=== PATIENT | male | born 1990 | race Two or more races ===

== ENCOUNTER 2025-04-26 16:21 | Emergency (ER) | payer SELFPAY ==
[2025-04-26 18:18] VITALS: BP 137/81; PULSE 99; RESP 18; TEMP 37.1; O2SAT 98
--- NOTE | 2025-04-26 18:25 | EDNOTE_ITS ---
<Statement entered by Jaz Storm MD - 04/27/25 23:26> As co-signing physician, I was present and available for consult prn. I concur with the plan and care as documented by the midlevel provider. ED Recheck Abnl Lab Rx-RME/HPI General Chief Complaint: Recheck/Abnormal Lab/Rx Stated Complaint: Pt. states he's here for Librium Time Seen by Provider: 04/26/25 18:11 Arrival date/time: 04/26/25 16:21 RME / HPI RME / HPI narrative: 34-year-old male patient was brought in by family for evaluation regarding request for Librium. Patient was diagnosed with alcohol withdrawal symptoms in [place] 2 days ago, was admitted in the hospital however patient was sent home with no prescription of Librium because did not want to prescribe following to [place]. Patient arrived today. Patient is complaining of feeling anxious and shaky. Denies any other complaints told me that the last time he drink alcohol was 9 days ago. Related Data Previous Rx's ?Medication ?Instructions ?Recorded chlordiazepoxide HCl 25 mg capsule 25 mg PO Q6H PRN al cohol 04/26/25 withdrawal #20 caps chlordiazepoxide HCl 25 mg capsule 25 mg PO TID PRN al cohol 04/26/25 withdrawal #20 caps chlordiazepoxide HCl 25 mg capsule 25 mg PO QID PRN al cohol 04/27/25 withdrawal #20 caps Allergies Allergy/AdvReac Type Severity Reaction Status Date / Time No Known Drug Allergies Allergy Verified 04/26/25 16:28 Review of Systems Review of Systems Narrative Review of Systems: Review of system reviewed and within normal limits except mentioned in HPI ED Exam Narrative Physical exam: VITAL SIGNS: Reviewed. GENERAL APPEARANCE: Alert and interactive, follows commands, no acute distress, anxious HEAD AND FACE: Non-traumatic. ENT: PERRL, pink conjunctivitis, eyelid no trauma, Mucous membrane moist. NECK: Supple, nontender, no nuchal rigidity. CHEST: No tenderness, no crepitus, no paradoxical movement, no retractions. LUNGS: Clear, well ventilated, symmetric, no rales, no wheezing, no ronchi, no stridor, good breath sounds bilaterally. HEART: Regular rate, regular rhythm, no murmur, no gallops. ABDOMEN: Soft, positive bowel sounds, nondistended, no guarding, nontender, no rebound, no masses, RECTAL: Deferred. GENITAL: Deferred. NEUROLOGICAL: Gross motor function intact sensory function intact, Appropriate for age. MUSCULOSKELETAL: low back nontender, full range of motion. EXTREMITIES: Nontender, full range of motion. SKIN: Color pink, dry, no rash, no lacerations, no abrasions, no contusions. LYMPHATICS: Deferred. Course Quality Measures none Orders Category Date Time Status chlordiazePOXIDE HCl [Librium] Med 04/26/25 18:24 Discontinued 25 mg PO X1 ONE Vital Signs Vital signs: Vital Signs Temperature 98.7 F 04/26/25 18:18 Pulse Rate 99 04/26/25 18:18 Respiratory Rate 18 04/26/25 18:18 Blood Pressure 137/81 H 04/26/25 18:18 Pulse Oximetry (%) 98 04/26/25 18:18 Oxygen Delivery Method Room Air 04/26/25 18:18 Recheck / Abnormal Lab / Rx MDM Narrative MDM Narrative:: 34-year-old male patient was brought in by family for evaluation regarding request for Librium. Patient was diagnosed with alcohol withdrawal symptoms in [place] 2 days ago, was admitted in the hospital however patient was sent home with no prescription of Librium because did not want to prescribe following to [place]. Patient arrived today. Patient is complaining of feeling anxious and shaky. Denies any other complaints told me that the last time he drink alcohol was 9 days ago. Patient stable Librium with significant problems symptoms. Workup presented at this time. Patient is not showing alcohol withdrawal symptoms. Patient data External records reviewed:: None Clinical information provided by:: patient Social determinants that could affect healthcare access:: alcohol use Patient has the following chronic illnesses:: Chronic alcoholism How is presenting disease/condition affected by chronic disease/condition?: exacerbated by Evaluation data The following diagnostics were reviewed and interpreted by me:: other (specify) Lab and/or radiology exams considered but not ordered:: None Interpretation Summary: None Medications / Prescriptions Medications or Prescriptions considered but not ordered:: None Medication administrations:: Medication Administration History Discontinued Medications Chlordiazepoxide HCl (Chlordiazepoxide Hcl 25 Mg Capsule) 25 mg PO X1 ONE Stop: 04/26/25 18:25 Last Admin: 04/26/25 18:30 Dose: 25 mg Documented By: NIKKO Librium Consultations Consultation(s) initiated? (list below): No Diagnosis Recheck Differential Diagnosis: other (Alcohol withdrawal, anxiety, chronic alcoholism) Most likely diagnosis given after review of the tests above:: Anxiety, chronic. Admission Indicated Admission indicated?: not indicated Admission Request Was there a request for admission?: No Disposition Plan Disposition Plan: Discharge Discharge Attestation Discharge Attestation: The patient and all family members were given an opportunity to ask questions and understood the discharge instructions. Discharge instructions specifically effects, indications for sooner follow up or return to the emergency department, and the expected course of current diagnosis. Patient condition: Stable Discharge Plan Plan Patient Disposition: HOME (Self Care) Discharge Disposition comment: Stable Prescriptions/Referrals Prescriptions/Med Rec: New chlordiazepoxide HCl 25 mg capsule 25 mg PO TID PRN (Reason: alcohol withdrawal) Qty: 20 0RF chlordiazepoxide HCl 25 mg capsule 25 mg PO Q6H PRN (Reason: alcohol withdrawal) Qty: 20 0RF chlordiazepoxide HCl 25 mg capsule 25 mg PO QID PRN (Reason: alcohol withdrawal) Qty: 20 0RF Problem List Clinical Impression: Anxiety, Alcoholism, chronic Patient/Caregiver Discharge Instructions Discharge Activity: activity as tolerated Education Materials: Alcohol Addiction Additional Instructions: Thank you for the opportunity for serving you today. You are stable for discharged . You are advised to: Follow-up with your PCP in 1 to 2 days Return to ED for worsening of symptoms Increase oral fluids Take medication as prescribed Print Language: Bengali Stand Alone Forms: Shelby Award Info., Patient Portal Info Letter
[2025-04-26] MEDS: chlordiazePOXIDE HCl 25 MG CAPSULE PO (18:30)
== END 2025-04-26 19:36 | disposition home or self-care (01) ==
PROVIDERS: Emergency Provider Emergency Medicine
DX: F10.20 Alcohol dependence, uncomplicated (principal); F41.9 Anxiety disorder, unspecified
CPT/HCPCS: 99282; A9270

== ENCOUNTER 2025-06-18 07:14 | Inpatient (IN) | payer MEDICAID, SELFPAY ==
[2025-06-18 07:27] VITALS: BP 150/102; PULSE 100; RESP 18; TEMP 36.9; O2SAT 97; BMI 24.2
--- NOTE | 2025-06-18 07:42 | EKG_ITS ---
[facility] Test Date: 2025-06-18 Pat Name: Brian Camargo Department: Room: - Gender: Male Lab Engineer: : 1990 Requested By: Enmanuel Barrera Order Number: [id number] Reading MD: Enmanuel Barrera Measurements Intervals [place] Rate: 94 P: 58 DC: 151 QRS: 15 QRSD: 97 T: 70 QT: 334 QTc: 419 Interpretive Statements SINUS RHYTHM NONSPECIFIC T-WAVE ABNORMALITY No previous ECG available for comparison /store/S0/[id number]
--- NOTE | 2025-06-18 07:43 | PD.EDRME ---
Rapid Medical Screening Exam RME Arrival date/time: 06/18/25 07:14 35-year-old male with no known medical history presents to the emergency room with a chief complaint of shakiness numbness weakness anxiety x 2 days. Patient states he is withdrawing from alcohol and was sober for 2 months before having his last drink 2 days ago. Patient states during his withdrawals he has a history of having seizures. I have greeted and performed a focused initial assessment of this patient. A comprehensive ED assessment and evaluation of the patient, analysis of all test results, and completion of the medical decision making process will be conducted by additional ED providers. Chief Complaint: Alcohol Time Seen by Provider: 06/18/25 07:29 Vital signs: Vital Signs Temperature 98.4 F 06/18/25 07:27 Pulse Rate 100 06/18/25 07:27 Respiratory Rate 18 06/18/25 07:27 Blood Pressure 150/102 H 06/18/25 07:27 Pulse Oximetry (%) 97 06/18/25 07:27 Oxygen Delivery Method Room Air 06/18/25 07:27 Vital signs reviewed by provider: Yes
--- NOTE | 2025-06-18 08:14 | EDNOTE_ITS ---
<Statement entered by Jaz Storm MD - 07/02/25 06:28> I, Jaz Storm MD, have reviewed the history, exam, and assessment of the patient. I have evaluated the patient independently and agree with the plan of care documented by [ ]. All diagnostic studies were reviewed and discussed. I confirm the diagnosis as documented by the Resident. I was present during the Medical Decision Making for this patient. The patient's plan of care was created between myself and the Resident and consistent with our discussion of the patient's case. ED General RME/HPI General Chief complaint: Alcohol Stated complaint: ETOH WITHDRAWL, ANXIETY, WEAKNESS Time Seen by Provider: 06/18/25 07:29 Arrival date/time: 06/18/25 07:14 RME / HPI RME / HPI narrative: 06/18/25 07:14 35-year-old male with no known medical history presents to the emergency room with a chief complaint of shakiness numbness weakness anxiety x 2 days. Patient states he is withdrawing from alcohol and was sober for 2 months before having his last drink 2 days ago. Patient states during his withdrawals he has a history of having seizures. I have greeted and performed a focused initial assessment of this patient. A comprehensive ED assessment and evaluation of the patient, analysis of all test results, and completion of the medical decision making process will be conducted by additional ED providers. 35-year-old male with past medical history of alcohol use disorder and alcohol withdrawal seizures comes into the ED today due to alcohol withdrawal symptoms. Patient states that 2 months ago he stopped drinking, but that last week he relapsed again and was drinking around 12-13 beers per day. States that his last drink was 2 days ago and that he started having tremors and feeling very anxious today. He stated that he felt the symptoms when he had the seizure therefore he came to the ED. He was prescribed Librium as outpatient and was requesting this, but it was explained to him that at this time he is [place] with the benefits of prescribing outpatient benzodiazepines as they can decrease the respiratory drive mix with alcohol. Otherwise patient has no other complaints at this time denies any nausea, vomiting, headaches, visual disturbances, tactile disturbances, chest pain, shortness of breath, or anything else. Denies any smoking, drugs, admits alcohol Related Data Previous Rx's ?Medication ?Instructions ?Recorded chlordiazepoxide HCl 25 mg capsule 25 mg PO Q6H PRN al cohol 04/26/25 withdrawal #20 caps chlordiazepoxide HCl 25 mg capsule 25 mg PO TID PRN al cohol 04/26/25 withdrawal #20 caps chlordiazepoxide HCl 25 mg capsule 25 mg PO QID PRN al cohol 04/27/25 withdrawal #20 caps Allergies Allergy/AdvReac Type Severity Reaction Status Date / Time No Known Drug Allergies Allergy Verified 06/18/25 07:24 Review of Systems Review of Systems Systems Reviewed: All systems reviewed, normal except as documented Past Medical History Past Medical History Comments PMH COMMENT: PMH: Alcohol use disorder and alcohol withdrawal seizures Social Hx: Denies any smoking, drugs, admits alcohol use Allergies: NKDA ED Exam Narrative Physical exam: Gen: A&O X 3, NAD HEENT: NCAT, EOMI, Pupils reactive MICHAEL, not icteric. External ears normal. No rhinorrhea. Moist mucous membranes. Neck: Supple, full range of motion, no observable masses, No meningeal sign. Lungs: No Respiratory distress, clear bilateral. CV: RRR, no murmurs. Abdomen: Soft, nondistended, No rebound tenderness. MSK: No joint swelling, no redness, peripheral pulses presents, lumbar with no edema. Asterixis present bilaterally. Skin: No rashes, petechiae, lesions. Neuro: No focal neurological deficits appreciated, sensory and motor intact. Psych: Anxious appearing, appropriate mood and affect Course Quality Measures none Orders Category Date Time Status COVID-19 Screening Questionnaire NOW Care 06/18/25 09:29 Active Decision to Admit X1 Care 06/18/25 09:29 Active EKG (ED ONLY) *Do not use* NOW Care 06/18/25 07:42 Completed Insert IV NOW Care 06/18/25 08:22 Completed EKG (ED Only) Stat Exams 06/18/25 07:42 Draft Alcohol, Blood Medical Stat Lab 06/18/25 08:20 Completed B-Type Natriuretic Peptide Stat Lab 06/18/25 08:20 Received CBC Stat Lab 06/18/25 08:20 Completed Comprehensive Metabolic Panel Stat Lab 06/18/25 08:20 Completed Drug Screen,Urine Stat Lab 06/18/25 08:32 Received Magnesium Stat Lab 06/18/25 08:20 Completed Troponin I Stat Lab 06/18/25 08:20 Completed Urinalysis Stat Lab 06/18/25 08:32 Received Folic Acid Inj Med 06/18/25 08:21 Discontinued 1 mg IVP X1 ONE Midazolam Inj [Versed Inj] Med 06/18/25 08:14 Discontinued 1 mg IVP X1 ONE Potassium Chloride [K-Dur] Med 06/18/25 09:27 Discontinued 40 meq PO X1 ONE Sodium Chloride 0.9% 1000 ml [Ns] 1,000 ml Med 06/18/25 08:21 Discontinued IV 999 mls/hr Thiamine Inj [Vitamin B-1 Inj] Med 06/18/25 08:21 Discontinued 100 mg IVP X1 ONE Vital Signs Vital signs: Vital Signs Temperature 98.4 F 06/18/25 07:27 Pulse Rate 100 06/18/25 07:27 Respiratory Rate 18 06/18/25 07:27 Blood Pressure 150/102 H 06/18/25 07:27 Pulse Oximetry (%) 97 06/18/25 07:27 Oxygen Delivery Method Room Air 06/18/25 07:27 Discharge Plan Plan Patient Disposition: Admit Acute Care w/in Hospital Prescriptions/Referrals Prescriptions/Med Rec: No Action chlordiazepoxide HCl 25 mg capsule 25 mg PO TID PRN (Reason: alcohol withdrawal) Qty: 20 0RF chlordiazepoxide HCl 25 mg capsule 25 mg PO Q6H PRN (Reason: alcohol withdrawal) Qty: 20 0RF chlordiazepoxide HCl 25 mg capsule 25 mg PO QID PRN (Reason: alcohol withdrawal) Qty: 20 0RF Referrals: Js Chery MD [Primary Care Provider] - In 1 week Problem List Clinical Impression: Alcohol withdrawal Patient/Caregiver Discharge Instructions Print Language: Djiboutian Stand Alone Forms: Shelby Award Info., Patient Portal Info Letter MDM Narrative MDM hospital course: Patient was seen and evaluated upon arrival by myself. Diagnostic labs were ordered. CIWA score was 7 therefore Versed 1 mg IV was given along with IV fluids, thiamine, and folic acid Patient's potassium came back low therefore ordered 40 mEq of potassium. 9: 28: Spoke with IM team for hospital admission due to alcohol withdrawal. IM team will assess the patient for admission. Case disclosed with Attending Dr. Dotty Lakhani PGY2 Disclaimer: Even though this this note was dictated by speech recognition and even though it was carefully revised there may still be minor errors in agricultural produce commission agent due to voice recognition software. Medication Administration(s) Medication Administration History Discontinued Medications Folic Acid (Folic Acid Inj 1 Mg/0.2 Ml) 1 mg IVP X1 ONE Stop: 06/18/25 08:22 Last Admin: 06/18/25 09:06 Dose: 1 mg Documented By: ARF Sodium Chloride (Ns) 1,000 mls @ 999 mls/hr IV .Q1H1M ONE Stop: 06/18/25 09:21 Last Admin: 06/18/25 09:05 Dose: 999 mls/hr Documented By: ARF Midazolam HCl (Midazolam Inj 1 Mg/Ml Vial 2 Ml) 1 mg IVP X1 ONE Stop: 06/18/25 08:15 Last Admin: 06/18/25 09:05 Dose: 1 mg Documented By: ARF Potassium Chloride (Potassium Chloride 20 Meq Tabcr) 40 meq PO X1 ONE Stop: 06/18/25 09:28 Thiamine HCl (Thiamine Inj 100 Mg/Ml Vial 2 Ml) 100 mg IVP X1 ONE Stop: 06/18/25 08:22 Last Admin: 06/18/25 09:05 Dose: 100 mg Documented By: ARF
[2025-06-18 08:41] LABS: Collection Type, Urine Clean Catch; Squamous Epithelial Cell,Urine 0 /hpf (0-5)
[2025-06-18 08:46] LABS: Basophils # (Auto) 0.1 Thou/mm3 (0.0-0.2); Basophils % (Auto) 1 % (0-2.5); Eosinophils # (Auto) 0.1 Thou/mm3 (0.0-0.5); Eosinophils % (Auto) 2 % (0-10); Hematocrit 47.3 % (41.0-53.0); Hemoglobin 17.1 g/dL (13.5-16.0); Immature Granulocytes Auto 0.02 Thou/mm3 (0.00-0.00); Lymphocytes # (Auto) 3.2 Thou/mm3 (1.0-4.8); Lymphocytes % (Auto) 49 % (10-50); Mean Corpuscular HGB Conc 36.2 g/dl (31.0-37.0); Mean Corpuscular Hemoglobin 33.7 pg (25.0-35.0); Mean Corpuscular Volume 93 fL (80-100); Monocytes # (Auto) 0.6 Thou/mm3 (0.0-0.8); Monocytes % (Auto) 9 % (0-12); Neutrophils # (Auto) 2.5 Thou/mm3 (1.8-7.7); Neutrophils % (Auto) 39 % (37-80); Nucleated Red Blood Cell # 0.00 Thou/mm3 (0.00-0.00); Nucleated Red Blood Cell % 0 /100 WBC (0); Platelet Count 143 Thou/mm3 (140-440); RDW Standard Deviation 41.8 fL (35.1-43.9); Red Blood Count 5.07 Miln/mm3 (4.50-5.90); White Blood Count 6.5 Thou/mm3 (3.8-10.6)
[2025-06-18] MEDS: SODIUM CHLORIDE 0.9% 1000 ML 1,000 ML 999 ML IV (09:05)
[2025-06-18] MEDS: THIAMINE INJ 100 MG/ML VIAL 2 ML IVP (09:05)
[2025-06-18] MEDS: MIDAZOLAM INJ 1 MG/ML VIAL 2 ML IVP (09:05)
[2025-06-18] MEDS: FOLIC ACID INJ 1 MG/0.2 ML IVP (09:06)
[2025-06-18 09:22] LABS: Alanine Aminotransferase 102 U/L (10-49); Albumin, Serum 5.3 gm/dL (3.5-5.0); Albumin/Globulin Ratio 1.9 (1.2-2.2); Alcohol, Blood Medical 301.3 mg/dL (0-10.0); Alkaline Phosphatase 125 U/L (46-116); Anion Gap 18 (7-16); Aspartate Amino Transferase 150 U/L (0-34); BUN/Creatinine Ratio 9 Ratio (12-20); Bilirubin,Total 0.9 mg/dL (0.3-1.2); Blood Urea Nitrogen 6 mg/dL (9-23); Calcium 10.1 mg/dL (8.3-10.6); Calcium (Corrected) 10.1 mg/dL (8.5-10.1); Carbon Dioxide 23.9 mMol/L (20.0-31.0); Chloride 99 mMol/L (98-107); Creatinine (Component) 0.7 mg/dL (0.6-1.3); Estimated Creatinine Clearance 132.9 mL/min (>60); Globulin 2.8 gm/dL (2.3-3.5); Glucose 99 mg/dL (74-106); Magnesium 1.8 mg/dL (1.6-2.6); Osmolality,Calculated 278 (275-295); Potassium 3.0 mMol/L (3.4-5.1); Sodium 141 mMol/L (136-145); Total Protein 8.1 gm/dL (5.7-8.2); Troponin I < 0.002 ng/mL (0.0-0.045); eGFR > 60 See Note
[2025-06-18 09:35] LABS: Bilirubin,Urine Negative (Negative); Blood,Urine Negative (Negative); Clarity,Urine Clear (Clear/Hazy); Color,Urine Colorless (Lt Yel-Yel); Glucose, Urine Negative (Negative); Ketones,Urine Negative (Negative); Leukocyte Esterase,Urine Negative (Negative); Nitrite,Urine Negative (Negative); PH,Urine 6.5 (5.0-7.0); Protein,Urine Negative (Neg - Trace); RBC,Urine 1 /hpf (0-3); Specific Gravity,Urine 1.004 (1.001-1.035); Urobilinogen,Urine Negative mg/dL (0.0-1.0); WBC,Urine < 1 /hpf (0-5)
[2025-06-18 09:48] LABS: Amphetamine/Methamp Scrn,U Negative (Negative); Barbiturate Screen,Urine Negative (Negative); Benzodiazepines Screen,Urine Negative (Negative); Benzoylecgonine Screen, Ur Negative (Negative); Fentanyl Screen,Urine Negative (Negative); Opiate Screen,Urine Negative (Negative); THC Screen,Urine Negative (Negative)
[2025-06-18 10:15] VITALS: BP 145/91; PULSE 114; RESP 18; TEMP 36.9; O2SAT 97
[2025-06-18 10:52] LABS: B-Type Natriuretic Peptide < 20 pg/mL (0-100)
--- NOTE | 2025-06-18 13:26 | ESHP_ITS ---
<Statement entered by Taryn Santana MD - 06/18/25 21:18> Patient was seen and examined at bedside. Agree with assessment and plan on this note. - Patient's plan and care discussed with my attending, Dr. Kemi Santana MD Internal Medicine PGY-3 Documentation for date of: 06/18/25 HPI History of Present Illness Chief complaint: Alcohol withdrawal History of present illness: Mr. Mccormick is a 35 year old male with a past medical history of alcohol use presents to the ED because he was having anxiety and feeling weak, with last alcoholic drink about 2 days. Patient states that he had been sober on and off from alcohol for around the last year for months at a time. He most recently started drinking around 2 weeks ago and stopped for the last week with the exception of 2 days ago. Patient states that he drinks 12 beers per day. Patient endorses hx of multiple episodes of withdrawal and endorses history of withdrawal seizures, most recently a few weeks ago in [place]. Patient states he was taking librium outpatient and no longer has any. Patient currently denies having fever, chills, chest pain, shortness of breath, abdominal pain, nausea, vomiting, hallucinations. Past Medical History: above Surgical History: None Social History: Endorses drinking alcohol since around 20 years old (has sober time periods; when drinking, endorses ~12 beers/day amount dai). 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 Current Medications: None Allergies: No known drug allergies ED Course: -Initial vitals were temperature 98.4, heart rate 100 bpm, RR 18, BP 150/102, 97% O2 on RA. -Labs significant for WBC 6.5, Hgb 17.1, Plt 143, K 3.0, AGAP 18, glucose 99, AST 150, ALT 102, Alk Phos 125, Ethyl Alcohol 301.3, Utox negative. -Imaging included EKG that showed sinus rhythm -In the ED, patient was given Midazolam 1 mg IV, Thiamine 100 mg, Folic Acid 1 mg, 1 L NS IV bolus, KCl 40 meq x1. -Patient was admitted for alcohol withdrawal. Review of Systems Review of systems otherwise negative except what is mentioned above. Exam Vital Signs Temp Pulse Resp BP Pulse Ox O2 Del Method 98.5 F 114 H 18 145/91 H 97 Room Air 06/18/25 10:15 06/18/25 10:15 06/18/25 10:15 06/18/25 10:15 06/18/25 10:15 06/18/25 10:15 Narrative Exam General: Anxious appearing, A&Ox3 Skin: Warm, dry, intact, no obvious rash. HENT: NCAT, EOMI, not icteric. External ears normal. No rhinorrhea. Dry mucous membranes Cardiovascular: Tachycardic, regular rhythm, no murmur, +S1/S2. Respiratory: Lungs CTAB GI: Soft, nontender, non-distended. No guarding or rebound tenderness. Extremities: no edema, no cyanosis, no clubbing. Extremity pulses present Neuro: No focal deficits observed. Conversant, moving all extremities. No overt cerebellar signs/incoordination. Results: Labs 06/19/25 05:22 06/19/25 05:22 Labs: Short CBC 06/18/25 Range/Units 08:20 WBC 6.5 (3.8-10.6) Thou/mm3 Hgb 17.1 H (13.5-16.0) g/dL Hct 47.3 (41.0-53.0) % Plt Count 143 (140-440) Thou/mm3 BMP 06/18/25 08:20 Sodium 141 Potassium 3.0 L Chloride 99 Carbon Dioxide 23.9 BUN 6 L Creatinine 0.7 Glucose 99 Calcium 10.1 Cardiac Enzymes 06/18/25 Range/Units 08:20 Troponin I < 0.002 (0.0-0.045) ng/mL Liver Function 06/18/25 Range/Units 08:20 Total Bilirubin 0.9 (0.3-1.2) mg/dL AST 150 H (0-34) U/L ALT 102 H (10-49) U/L Alkaline Phosphatase 125 H (46-116) U/L Albumin 5.3 H (3.5-5.0) gm/dL Urine 06/18/25 Range/Units 08:32 Urine Color Colorless A (Lt Yel-Yel) Urine Clarity Clear (Clear/Hazy) Urine pH 6.5 (5.0-7.0) Ur Specific [place] 1.004 (1.001-1.035) Urine Protein Negative (Neg - Trace) Urine Glucose (UA) Negative (Negative) Quality Measures Quality Measures VTE prophylaxis Medications Home Medications and Allergies Home Medications ?Medication ?Instructions ?Recorded ?Confirmed ?Type No Known Home Medications 06/19/2506/01 History Allergies Allergy/AdvReac Type Severity Reaction Status Date / Time No Known Drug Allergies Allergy Verified 06/18/25 07:24 Visit Medications Potassium Chloride (Kcl Ivpb) 10 meq in 100 mls @ 100 mls/hr IV Q1H DEBORAH Stop: 06/18/25 16:59 Discontinued Medications Folic Acid (Folic Acid Inj 1 Mg/0.2 Ml) 1 mg IVP X1 ONE Stop: 06/18/25 08:22 Last Admin: 06/18/25 09:06 Dose: 1 mg Sodium Chloride (Ns) 1,000 mls @ 999 mls/hr IV .Q1H1M ONE Stop: 06/18/25 09:21 Last Infusion: 06/18/25 10:53 Dose: Infused Midazolam HCl (Midazolam Inj 1 Mg/Ml Vial 2 Ml) 1 mg IVP X1 ONE Stop: 06/18/25 08:15 Last Admin: 06/18/25 09:05 Dose: 1 mg Potassium Chloride (Potassium Chloride 20 Meq Tabcr) 40 meq PO X1 ONE Stop: 06/18/25 09:28 Last Admin: 06/18/25 10:15 Dose: 40 meq Thiamine HCl (Thiamine Inj 100 Mg/Ml Vial 2 Ml) 100 mg IVP X1 ONE Stop: 06/18/25 08:22 Last Admin: 06/18/25 09:05 Dose: 100 mg Assessment & Plan Plan Mr. Mccormick is a 35 year old male with a past medical history of alcohol use presents to the ED because he was having anxiety and feeling weak, admitted for alcohol withdrawal. #Acute Alcohol Withdrawal #high anion gap metabolic acidosis #lactic acidosis Patient comes in with anxiety and weakness for the last 2 days. Reports hx of withdrawals with seizures (patient stated most recent a few weeks ago). Ethyl Alcohol 301.3. In ED, given Midazolam 1 mg IV, Thiamine 100 mg, Folic Acid 1 mg, 1 L NS IV bolus Patient fount to have HAGMA due to lactic acidosis (3.6), likely due to combination of poor nutrition, dehyrdation, alcohol use. -CIWA protocol deployed -Folic Acid 1 mg IV qd -Thiamine 100 mg IV qd -Librium 25 mg po q8hr; tapering so that following days are BID, x1. -Maintenance NS IV fluids -Ordered repeat lactic acid -neuro checks q4h -seizure precautions. #Hypokalemia K on admission was 3.0 Patient denies muscle cramps, chest pain, palpitations. EKG sinus rhythm -repleted with KCl 40 PO meq x1 & KCl 10 meq IV x4 #LFT elevation On admission, AST 150, ALT 102, Alk Phos 125 Suspecting alcohol use vs possible viral, autoimmune, hereditary/genetic If it does not improve, then will consider workup for other etiology. -Will continue to monitor LFT's #Polycythemia Hgb on admission 17.1 Likely due to hemoconcentration given patients poor PO intake. Patient received Bolus liter; on maintenance fluids -will continue to monitor hgb Hospital Management: Disposition: Tele Diet: Regular GI Prophylaxis: Protonix 40 mg qd DVT Prophylaxis: Heparin CODE STATUS: FULL CODE Patient plan of care was discussed with the attending physician, Dr. Mcmullen & senior resident Dr. Max Frye MD PGY-1 Attending Provider Attestation/Addendum I have examined the patient, reviewed labs and imaging findings, discussed the case with the resident(s), and reviewed entered orders. I agree with the plan of care as outlined in this note, with these additional summaries/recommendations: After examination of the patient and review of the clinical data, I feel that this patient needs admission to the hospital for further treatment and evaluation. Patient will be admitted for acute encephalopathy in the setting of alc withdrawal versus intoxication. Patient is not reliable historian at this time. Start CIKY protocol. Monitor transaminitis. creative services director referral for resources one mentation more improved. Dr. Kemi MD
[2025-06-18 13:43] LABS: Lactate (Lactic Acid) 3.6 mMol/L (0.4-2.0)
[2025-06-18] MEDS: POTASSIUM CHL 10 mEq IVPB 10 MEQ/100 ML BAG 100 MEQ IV ×4 (13:59→18:25)
[2025-06-18] MEDS: SODIUM CHLORIDE 0.9% 1000 ML 1,000 ML 110 ML IV ×2 (14:00→18:35)
--- NOTE | 2025-06-18 14:07 | PC.NURSE ---
FOOD AND FLUIDS PROVIDED.
[2025-06-18 14:22] LABS: Thyroid Stimulating Hormone 0.79 uIU/mL (0.55-4.78)
[2025-06-18 14:27] LABS: Glucose Estimated Average 114 mg/dL (80-131); Hemoglobin A1C 5.6 % Hgb (4.8-6.0)
[2025-06-18 16:02] VITALS: BP 139/84; PULSE 102; RESP 18; TEMP 36.9; O2SAT 96
[2025-06-18 16:37] LABS: Reflex Lactate? Y
[2025-06-18 18:13] VITALS: BP 137/89; PULSE 89; RESP 17; TEMP 36.7; O2SAT 97; BMI 24.2
[2025-06-18] MEDS: SODIUM CHLORIDE 0.9% 500 ML 500 ML 999 ML IV (18:34)
[2025-06-18 20:00] VITALS: PULSE 102
[2025-06-18 20:40] LABS: Lactate (Lactic Acid) 2.7 mMol/L (0.4-2.0)
[2025-06-18] MEDS: HEPARIN SOD INJ 5000 UNIT/ML VIAL SC (21:06)
[2025-06-18] MEDS: ACETAMINOPHEN 325 MG TABLET 650 MG PO (22:17)
[2025-06-18 23:30] VITALS: PULSE 98
[2025-06-18 23:34] LABS: Reflex Lactate? Y
[2025-06-18 23:54] LABS: Lactic Acid, 3 HR 0.8 mMol/L (0.4-2.0)
[2025-06-19] VITALS (7 sets, daily range): BP systolic 131–151; BP diastolic 81–92; PULSE 70–125; RESP 12–21; TEMP 35.9–36.8; O2SAT 97–99; BMI 24.8
[2025-06-19 05:44] LABS: Basophils # (Auto) 0.1 Thou/mm3 (0.0-0.2); Basophils % (Auto) 1 % (0-2.5); Eosinophils # (Auto) 0.0 Thou/mm3 (0.0-0.5); Eosinophils % (Auto) 0 % (0-10); Hematocrit 42.3 % (41.0-53.0); Hemoglobin 15.0 g/dL (13.5-16.0); Immature Granulocytes Auto 0.03 Thou/mm3 (0.00-0.00); Lymphocytes # (Auto) 1.1 Thou/mm3 (1.0-4.8); Lymphocytes % (Auto) 21 % (10-50); Mean Corpuscular HGB Conc 35.5 g/dl (31.0-37.0); Mean Corpuscular Hemoglobin 33.7 pg (25.0-35.0); Mean Corpuscular Volume 95 fL (80-100); Monocytes # (Auto) 0.5 Thou/mm3 (0.0-0.8); Monocytes % (Auto) 10 % (0-12); Neutrophils # (Auto) 3.5 Thou/mm3 (1.8-7.7); Neutrophils % (Auto) 67 % (37-80); Nucleated Red Blood Cell # 0.00 Thou/mm3 (0.00-0.00); Nucleated Red Blood Cell % 0 /100 WBC (0); Platelet Count 132 Thou/mm3 (140-440); RDW Standard Deviation 42.1 fL (35.1-43.9); Red Blood Count 4.45 Miln/mm3 (4.50-5.90); White Blood Count 5.2 Thou/mm3 (3.8-10.6)
[2025-06-19 06:06] LABS: INR 1.1 (0.9-1.3); Partial Thromboplastin Time 27.9 Seconds (22.0-36.0); Prothrombin Time 11.9 Seconds (9.0-12.2)
[2025-06-19 06:24] LABS: Alanine Aminotransferase 81 U/L (10-49); Albumin, Serum 4.8 gm/dL (3.5-5.0); Albumin/Globulin Ratio 1.9 (1.2-2.2); Alkaline Phosphatase 101 U/L (46-116); Anion Gap 16 (7-16); Aspartate Amino Transferase 102 U/L (0-34); BUN/Creatinine Ratio 8 Ratio (12-20); Bilirubin,Total 1.8 mg/dL (0.3-1.2); Blood Urea Nitrogen < 5 mg/dL (9-23); Calcium 10.1 mg/dL (8.3-10.6); Calcium (Corrected) 10.1 mg/dL (8.5-10.1); Carbon Dioxide 23.9 mMol/L (20.0-31.0); Chloride 99 mMol/L (98-107); Creatinine (Component) 0.6 mg/dL (0.6-1.3); Estimated Creatinine Clearance 155.1 mL/min (>60); Globulin 2.5 gm/dL (2.3-3.5); Glucose 85 mg/dL (74-106); Magnesium 1.5 mg/dL (1.6-2.6); Osmolality,Calculated 273 (275-295); Phosphorous 2.8 mg/dL (2.4-5.1); Potassium 3.8 mMol/L (3.4-5.1); Sodium 139 mMol/L (136-145); Total Protein 7.3 gm/dL (5.7-8.2); eGFR > 60 See Note
[2025-06-19] MEDS: PANTOPRAZOLE 40 MG TABLET PO (08:50)
[2025-06-19] MEDS: HEPARIN SOD INJ 5000 UNIT/ML VIAL SC ×2 (08:50→20:07)
[2025-06-19] MEDS: THIAMINE INJ 100 MG/ML VIAL 2 ML IV (08:51)
[2025-06-19] MEDS: FOLIC ACID INJ 1 MG/0.2 ML IVP (09:08)
--- NOTE | 2025-06-19 11:34 | PC.SS ---
Brian Mccormick is a 35 year-old male admitted to [facility] for ETOH Withdrawl. SS conducted bedside contact with the patient to complete initial assessment and to discuss discharge planning. Role and reason explained. Patient confirmed demographic information. Patient identifies his Adrianna Cortés [phone] as his surrogate decision maker. Pt states he is able to complete all ADL?s independent. Pt does not possesses any DME. Pts PCP is Vik MERCADO. Discharge options discussed and the pt wishes to return home.? Pt will provide transport. No further intervention required at this time, geriatric social worker would be available to address any further concerns. DC Plan: Home Contact: Adrianna Address: Confirmed on face sheet PCP: Vik
--- NOTE | 2025-06-19 13:04 | PC.SS ---
Rounding: One more day of monitoring w/d, DC plan home tomorrow
--- NOTE | 2025-06-19 13:26 | ESPR_ITS ---
<Statement entered by Taryn Santana MD - 06/19/25 19:48> Patient was seen and examined at bedside. Still have some shakiness and anxiety, however his CIWA score has not gone above 15. Getting oral Ativan and still on Librium taper. His liver enzymes downtrending however his total bilirubin increased to 1.8. On examination was found to have mild abdominal tenderness at the right upper quadrant. Ultrasound of the liver was ordered and it was negative for any liver lesion or cholecystitis. Tomorrow at the patient withdrawal symptoms are improving can be discharged. - Patient's plan and care discussed with my attending, Dr. Kristy Santana MD Internal Medicine PGY-3 Documentation for date of: 06/19/25 Subjective Subjective Interval history: No acute events overnight. Patient seen and examined at bedside. Vitals and labs reviewed. Patient states he is feeling a little dizzy when he stands up, also endorses some nausea and abdominal pain; states his anxiety is a little less compared to yesterday. Patient denies fever, seizures, chest pain, shortness of breath Exam Vital Signs Temp Pulse Resp BP Pulse Ox O2 Del Method 98.0 F 86 21 H 140/92 H 98 Room Air 06/19/25 12:00 06/19/25 12:00 06/19/25 12:00 06/19/25 12:00 06/19/25 12:00 06/19/25 12:00 Narrative Exam General: Anxious appearing, A&Ox3 Skin: Warm, dry, intact, no obvious rash. HENT: NCAT, EOMI, not icteric. External ears normal. No rhinorrhea. Dry mucous membranes Cardiovascular: Tachycardic, regular rhythm, no murmur, +S1/S2. Respiratory: Lungs CTAB GI: Novoa's Sign Pos, Soft, nontender, non-distended. No guarding or rebound tenderness. Extremities: no edema, no cyanosis, no clubbing. Extremity pulses present Neuro: No focal deficits observed. Conversant, moving all extremities. No overt cerebellar signs/incoordination. Objective Labs 06/20/25 04:49 06/20/25 04:49 Labs: Laboratory Results - last 24 hr 06/18/25 06/18/25 06/18/25 13:30 20:18 23:46 WBC RBC Hgb Hct MCV MCH MCHC RDW Std Deviation Plt Count Neut % (Auto) Lymph % (Auto) [place] % (Auto) Eos % (Auto) Baso % (Auto) Neut # (Auto) Lymph # (Auto) [place] # (Auto) Eos # (Auto) Baso # (Auto) Immature Gran # (Auto) Absolute Nucleated RBC Immature Gran % Nucleated RBC % PT INR APTT Sodium Potassium Chloride Carbon Dioxide Anion Gap BUN Creatinine Estim Creat Clear Calc eGFR BUN/Creatinine Ratio Glucose Estimated Ave Glu mg/dL 114 Hemoglobin A1c 5.6 Calculated Osmolality Lactic Acid 3.6 H 2.7 H 0.8 Calcium Corrected Calcium Phosphorus Magnesium Total Bilirubin AST ALT Alkaline Phosphatase Total Protein Albumin Globulin Albumin/Globulin Ratio TSH 0.79 06/19/25 05:22 WBC 5.2 RBC 4.45 L Hgb 15.0 D Hct 42.3 MCV 95 MCH 33.7 MCHC 35.5 RDW Std Deviation 42.1 Plt Count 132 L Neut % (Auto) 67 Lymph % (Auto) 21 [place] % (Auto) 10 Eos % (Auto) 0 Baso % (Auto) 1 Neut # (Auto) 3.5 Lymph # (Auto) 1.1 [place] # (Auto) 0.5 Eos # (Auto) 0.0 Baso # (Auto) 0.1 Immature Gran # (Auto) 0.03 H Absolute Nucleated RBC 0.00 Immature Gran % 1 H Nucleated RBC % 0 PT 11.9 INR 1.1 APTT 27.9 Sodium 139 Potassium 3.8 D Chloride 99 Carbon Dioxide 23.9 Anion Gap 16 BUN < 5 L Creatinine 0.6 Estim Creat Clear Calc 155.1 eGFR > 60 BUN/Creatinine Ratio 8 L Glucose [address] Glu mg/dL Hemoglobin A1c Calculated Osmolality 273 L Lactic Acid Calcium 10.1 Corrected Calcium 10.1 Phosphorus 2.8 Magnesium 1.5 L Total Bilirubin 1.8 H D AST 102 H ALT 81 H Alkaline Phosphatase 101 D Total Protein 7.3 Albumin 4.8 D Globulin 2.5 Albumin/Globulin Ratio 1.9 TSH Quality Measures Quality Measures VTE prophylaxis Assessment & Plan Assessment Current Active Medications: Generic Name Dose Route Start Last Admin Trade Name Freq PRN Reason Stop Dose Admin Acetaminophen 650 mg 06/18/25 13:08 06/18/25 22:17 Acetaminophen 325 Mg Tablet PO 07/18/25 13:07 650 mg Q6H PRN Administration Fever >100.5 or pain 1-3 Hydrocodone Bitart/Acetaminophen 1 tab 06/18/25 13:08 Hydrocodone/Apap 5/325 Tablet PO 06/23/25 13:07 Q4HR PRN PAIN SCALE 4-6 (Moderate Hydrocodone Bitart/Acetaminophen 1 tab 06/18/25 13:14 Hydrocodone/Apap 10/325 Tab PO 06/23/25 13:13 Q4HR PRN PAIN SCALE 7-10 (Severe Chlordiazepoxide HCl 25 mg 06/19/25 14:00 Chlordiazepoxide Hcl 25 Mg Capsule PO 06/19/25 21:01 BID DEBORAH Chlordiazepoxide HCl 25 mg 06/20/25 14:00 Chlordiazepoxide Hcl 25 Mg Capsule PO 06/20/25 14:01 X1 ONE Diazepam 2.5 mg 06/18/25 13:27 Diazepam Inj 5 Mg/Ml Vial 2 Ml IVP 06/23/25 13:26 Q2HR PRN CIWA SCORE 8-13 Diazepam 5 mg 06/18/25 13:27 Diazepam Inj 5 Mg/Ml Vial 2 Ml IVP 06/23/25 13:26 Q2HR PRN CIWA SCORE 14-19 Diazepam 10 mg 06/18/25 13:27 Diazepam Inj 5 Mg/Ml Vial 2 Ml IVP 06/23/25 13:26 Q2HR PRN CIWA SCORE 20-25 Diazepam 5 mg 06/18/25 13:27 Diazepam Inj 5 Mg/Ml Vial 2 Ml IVP X1 PRN Breakthrough Agitation Folic Acid 1 mg 06/19/25 09:00 06/19/25 09:08 Folic Acid Inj 1 Mg/0.2 Ml IVP 07/19/25 08:59 1 mg QDAY DEBORAH Administration Heparin Sodium (Porcine) 5,000 unit 06/18/25 21:00 06/19/25 08:50 Heparin Sod Inj 5000 Unit/Ml Vial SC 07/02/25 20:59 5,000 unit Q12HR DEBORAH Administration Influenza Virus Vaccine Quadrival 0.5 ml 06/22/25 09:00 Influenza Virus Quadrivalent 0.5 Ml Syringe IMi 06/22/25 09:01 .ONCE ONE Lorazepam 0.5 mg 06/18/25 13:27 06/19/25 00:36 Lorazepam 0.5 Mg Tablet PO 06/23/25 13:26 0.5 mg Q4HR PRN Administration CIWA Score 2-6 Lorazepam 1 mg 06/18/25 13:27 06/19/25 09:07 Lorazepam 0.5 Mg Tablet PO 06/23/25 13:26 1 mg Q4HR PRN Administration CIWA SCORE 7-11 Lorazepam 2 mg 06/18/25 13:27 Lorazepam 0.5 Mg Tablet PO 06/23/25 13:26 Q4HR PRN CIWA SCORE 12-15 Ondansetron HCl 4 mg 06/18/25 13:08 Ondansetron Inj 2 Mg/Ml Inj 2 Ml IVP 07/18/25 13:07 Q6H PRN NAUSEA OR VOMITING Protocol Pantoprazole Sodium 40 mg 06/19/25 09:00 06/19/25 08:50 Pantoprazole 40 Mg Tablet PO 07/19/25 08:59 40 mg QDAY DEBORAH Administration Thiamine HCl 100 mg 06/19/25 08:00 06/19/25 08:51 Thiamine Inj 100 Mg/Ml Vial 2 Ml IV 07/19/25 07:59 100 mg QDAY DEBORAH Administration Plan Mr. Mccormick is a 35 year old male with a past medical history of alcohol use presents to the ED because he was having anxiety and feeling weak, admitted for alcohol withdrawal. #Acute Alcohol Withdrawal #high anion gap metabolic acidosis #lactic acidosis Patient comes in with anxiety and weakness for the last 2 days. Reports hx of withdrawals with seizures (patient stated most recent a few weeks ago). Ethyl Alcohol 301.3. In ED, given Midazolam 1 mg IV, Thiamine 100 mg, Folic Acid 1 mg, 1 L NS IV bolus Patient fount to have HAGMA due to lactic acidosis (3.6), likely due to combination of poor nutrition, dehyrdation, alcohol use. Lactic Acid 06/19: 0.8 -CIWA protocol deployed -Folic Acid 1 mg IV qd -Thiamine 100 mg IV qd -Librium 25 mg po q8hr; tapering so that following days are BID, x1. -neuro checks q4h -seizure precautions. #Hypokalemia K on admission was 3.0 Patient denies muscle cramps, chest pain, palpitations. EKG sinus rhythm 06/19: K 3.8 -repleted 06/18 with KCl 40 PO meq x1 & KCl 10 meq IV x4 #LFT elevation #abdominal pain On admission, AST 150, ALT 102, Alk Phos 125, TBili 0.9 Suspecting alcohol use vs possible viral, less likely autoimmune If it does not improve, then will consider workup for other etiology. 06/19: AST 102, ALT 81, Alk Phos 101, TBili 1.8 -Will continue to monitor LFT's -US abdomen ordered, f/u #Polycythemia, improving Hgb on admission 17.1 Likely due to hemoconcentration given patients poor PO intake. Patient received Bolus liter; on maintenance fluids 06/19: hgb 15.0 -will continue to monitor hgb Hospital Management: Disposition: Tele Diet: Regular GI Prophylaxis: Protonix 40 mg qd DVT Prophylaxis: Heparin CODE STATUS: FULL CODE Patient plan of care was discussed with the attending physician, Dr. Wagner & senior resident Dr. Max Frye MD PGY-1 Attending Provider Attestation/Addendum I have discussed and was present for the essential components of the history, physical examination, diagnosis, and treatment plan with the resident. I agree with the patient's care as documented by the resident and amended herein by me. Mor Wagner DO. Although this document has been carefully reviewed, there may still be some phonetic and other typographical errors. These errors are purely grammatical due to imperfections in the software program and should not be construed in any way to compromise the substance of the patient's medical care during this visit.
--- NOTE | 2025-06-19 13:52 | XR_ITS ---
Examination: Abdomen sonogram, Limited Date and time of exam: June 19, 2025 1426 hours INDICATIONS: Abdominal pain today Technique: Real-time brownlee scale transabdominal sonographic images of the upper abdomen obtained. Findings: Negative for gallstones Gallbladder wall 0.2 cm Common bile duct 0.3 cm Pancreatic head 2.1 cm Liver 15 cm fatty infiltration Normal hepatopedal portal venous flow Patent IVC IMPRESSION: Negative for cholelithiasis, negative for cholecystitis
--- NOTE | 2025-06-19 14:27 | PC.NURSE ---
Patient transported to ultrasound via wheelchair per TWYLA Cotter.
[2025-06-20] VITALS: BP 128/86; PULSE 76; PULSE 87; RESP 16; TEMP 35.9; O2SAT 97
[2025-06-20 02:20] VITALS: TEMP 36.3
[2025-06-20 04:00] VITALS: BP 137/90; PULSE 82; PULSE 98; RESP 12; TEMP 36; O2SAT 97
[2025-06-20 05:21] VITALS: BMI 24.8
[2025-06-20 05:59] LABS: Basophils # (Auto) 0.0 Thou/mm3 (0.0-0.2); Basophils % (Auto) 1 % (0-2.5); Eosinophils # (Auto) 0.1 Thou/mm3 (0.0-0.5); Eosinophils % (Auto) 1 % (0-10); Hematocrit 42.9 % (41.0-53.0); Hemoglobin 15.4 g/dL (13.5-16.0); Immature Granulocytes Auto 0.02 Thou/mm3 (0.00-0.00); Lymphocytes # (Auto) 1.5 Thou/mm3 (1.0-4.8); Lymphocytes % (Auto) 29 % (10-50); Mean Corpuscular HGB Conc 35.9 g/dl (31.0-37.0); Mean Corpuscular Hemoglobin 34.0 pg (25.0-35.0); Mean Corpuscular Volume 95 fL (80-100); Monocytes # (Auto) 0.6 Thou/mm3 (0.0-0.8); Monocytes % (Auto) 11 % (0-12); Neutrophils # (Auto) 3.1 Thou/mm3 (1.8-7.7); Neutrophils % (Auto) 58 % (37-80); Nucleated Red Blood Cell # 0.00 Thou/mm3 (0.00-0.00); Nucleated Red Blood Cell % 0 /100 WBC (0); Platelet Count 101 Thou/mm3 (140-440); RDW Standard Deviation 42.0 fL (35.1-43.9); Red Blood Count 4.53 Miln/mm3 (4.50-5.90); White Blood Count 5.3 Thou/mm3 (3.8-10.6)
[2025-06-20 06:39] LABS: Alanine Aminotransferase 73 U/L (10-49); Albumin, Serum 4.9 gm/dL (3.5-5.0); Albumin/Globulin Ratio 1.8 (1.2-2.2); Alkaline Phosphatase 100 U/L (46-116); Anion Gap 12 (7-16); Aspartate Amino Transferase 94 U/L (0-34); BUN/Creatinine Ratio 7 Ratio (12-20); Bilirubin,Total 1.2 mg/dL (0.3-1.2); Blood Urea Nitrogen 5 mg/dL (9-23); Calcium 10.7 mg/dL (8.3-10.6); Calcium (Corrected) 10.7 mg/dL (8.5-10.1); Carbon Dioxide 27.2 mMol/L (20.0-31.0); Chloride 99 mMol/L (98-107); Creatinine (Component) 0.7 mg/dL (0.6-1.3); Estimated Creatinine Clearance 132.9 mL/min (>60); Globulin 2.7 gm/dL (2.3-3.5); Glucose 87 mg/dL (74-106); Magnesium 2.2 mg/dL (1.6-2.6); Osmolality,Calculated 271 (275-295); Phosphorous 2.7 mg/dL (2.4-5.1); Potassium 3.8 mMol/L (3.4-5.1); Sodium 138 mMol/L (136-145); Total Protein 7.6 gm/dL (5.7-8.2); eGFR > 60 See Note
[2025-06-20 08:00] VITALS: BP 149/98; PULSE 119; PULSE 98; RESP 14; TEMP 36.2; O2SAT 99
[2025-06-20] MEDS: THIAMINE INJ 100 MG/ML VIAL 2 ML IV (08:07)
[2025-06-20] MEDS: HEPARIN SOD INJ 5000 UNIT/ML VIAL SC (08:07)
[2025-06-20] MEDS: FOLIC ACID INJ 1 MG/0.2 ML IVP (08:09)
[2025-06-20] MEDS: PANTOPRAZOLE 40 MG TABLET PO (08:09)
[2025-06-20 12:00] VITALS: BP 135/85; PULSE 88; RESP 15; TEMP 36.3; O2SAT 99
--- NOTE | 2025-06-20 13:33 | ESDS_ITS ---
<Statement entered by Ifeanyi Clifford MD - 06/20/25 14:12> I have reviewed the note and agree with the resident's assessment & plan with exceptions as below. I have personally reviewed labs, imaging, home meds/prior records, examined the patient, formulated and discussed management plan with the IM team. Pt examined at bedside today. No acute overnight events. Pt's last CIWA score was 0. Pt medically cleared for discharged. Pt was then discharged with the following instructions listed below. We also prescribed the patient Losartan for essential HTN. Ifeanyi Clifford, PGY-2 Internal Medicine Planned Discharge Date 06/20/25 DS: Providers Provider Date of admission: 06/18/25 09:43 Primary care physician: Js Chery MD Admitting Provider: Rolan Mcmullen MD Attending Provider on Admission: Prosper Wagner DO Attending Provider on DC: Prosper Wagner DO Discharging Provider: Prosper Wagner DO DS: Diagnosis Problem List Completed Was Problem List Reviewed/Reconciled?: Yes Hospital Course Hospital Course Hospital course: Mr. Mccormick is a 35 year old male with a past medical history of alcohol use presents to the ED at [facility] with anxiety and weakness. Patient was admitted for alcohol withdrawal. Patient stated that his last drink was around 2 days before admission. Patient states that he has a history of alcoholic withdrawal seizures, but did not have any seizures during his hospital stay. Patient's alcohol withdrawal was initially treated in the ED with IV Midazolam 1 mg, thiamine, folic acid, and IV fluids. Patient was started on CIWA protocol and was given Librium taper along with Lorazepam throughout his hospital stay. Patient was also found to have some abdominal pain with elevated liver function tests on labs. A liver ultrasound was done and was found to have 15 cm fatty infiltration of the liver and was negative for negative for cholelithiasis, negative for cholecystitis. Patient's anxiety and weakness improved throughout the hospital stay and was discharged in stable clinical condition. Discharge Instructions Follow-up with your PCP within 1 week Take your medicines as prescribed AVOID ALL SUBSTANCES INCLUDING ALCOHOL I am prescribing you a blood pressure medicine, Losartan, take as prescribed Return to ED if your symptoms worsen or return Admission Diagnosis #Acute Alcohol Withdrawal #high anion gap metabolic acidosis #lactic acidosis #Hypokalemia #LFT elevation #abdominal pain #Polycythemia Patient plan of care was discussed with the attending physician, Dr. Wagner & resident Dr. Darrin Frye MD PGY-1 Time Spent with Patient Time attestation: Total time spent providing and/or coordinating discharge services: Time spent: Greater than 30 minutes Exam Vital Signs Temp Pulse Resp BP Pulse Ox O2 Del Method 97.4 F 88 15 135/85 H 99 Room Air 06/20/25 12:00 06/20/25 12:00 06/20/25 12:00 06/20/25 12:00 06/20/25 12:00 06/20/25 12:00 Narrative Exam General: no acute distress, resting in bed, A&Ox3 Skin: Warm, dry, intact, no obvious rash. HENT: Mucous membranes moist; NCAT, EOMI, not icteric. External ears normal. No rhinorrhea. Cardiovascular: Tachycardic, regular rhythm, no murmur, +S1/S2. Respiratory: Lungs CTAB GI: Soft, nontender, non-distended. No guarding or rebound tenderness. Extremities: no edema, no cyanosis, no clubbing. Extremity pulses present Neuro: No focal deficits observed. Conversant, moving all extremities. No overt cerebellar signs/incoordination. Discharge Plan Plan Patient Disposition: HOME (Self Care) Patient condition on transfer: Stable Care Plan Goals: Discharge instructions Follow-up with your PCP within 1 week Take your medicines as prescribed AVOID ALL SUBSTANCES INCLUDING ALCOHOL I am prescribing you a blood pressure medicine, Losartan, take as prescribed Return to ED if your symptoms worsen or return Prescriptions/Referrals Prescriptions/Med Rec: New losartan 25 mg tablet 25 mg PO QDAY 14 Days Qty: 14 0RF Rx Instructions: Take one tablet by mouth every day Referrals: Js Chery MD [Primary Care Provider] - Patient/Caregiver Discharge Instructions Discharge Activity: activity as tolerated Education Materials: Social Drinking vs Problem Drinking, Alcohol Withdrawal: What to Expect, Hypertension Dc Print Language: Niuean Stand Alone Forms: [facility] Award Info., Patient Portal Info Letter Discharge Order Discharge Orders: Discharge (Routine); Ordered 06/20/25 Ordered By: Ifeanyi Clifford Quality Discharge Quality Measures VTE prophylaxis Attestestation Attestation I have discussed and was present for the essential components of the discharge history, physical examination, diagnosis, and discharge treatment plan with the resident. I agree with the patient's discharge care as documented by the nikoi dent and amended herein by me. Mor Wagner DO. The patient understood all discharge instructions, all questions were answered satisfactorily. The patient was instructed to return to the Emergency Department is symptoms worsened or persisted. Patient was stable, afebrile, tolerating p.o. intake and ambulatory at time of discharge home. Although this document has been carefully reviewed, there may still be some phonetic and other typographical errors. These errors are purely grammatical due to imperfections in the software program and should not be construed in any way to compromise the substance of the patient's medical care during this visit.
== END 2025-06-20 12:50 | disposition home or self-care (01) | DRG 775 ==
LOC: SERX 09:29 → SERHOLD 09:55 → S2NX 18:17
PROVIDERS: Nurse Practitioner Family; Student in an Organized Health Care Education/Training Program; Admitting Provider Student in an Organized Health Care Education/Training Program; Emergency Provider Emergency Medicine; PCP Family Medicine; Visit Provider Student in an Organized Health Care Education/Training Program
DX: F10.139 Alcohol abuse with withdrawal, unspecified (principal); F41.9 Anxiety disorder, unspecified; D75.1 Secondary polycythemia; E87.6 Hypokalemia; G93.40 Encephalopathy, unspecified; R79.89 Other specified abnormal findings of blood chemistry; I10 Essential (primary) hypertension; E87.20 Acidosis, unspecified; K76.0 Fatty (change of) liver, not elsewhere classified; Y90.8 Blood alcohol level of 240 mg/100 ml or more
CPT/HCPCS: 36415; 76705; 80053; 80307; 80320; 81001; 83036; 83605; 83735; 83880; 84100; 84443; 84484; 85025; 85610; 85730; 93005; 96361; 96365; 96375; 96376; 99284; J1644; J2250; J3411; J3475; J3480; J3490; J7030; J7999; A9270; G0480